=== PATIENT | male | born 1990 | race Caucasian/White ===

== ENCOUNTER 2022-04-20 12:40 | Emergency (ER) | payer OTHER ==
[~2022-04-20 12:40] MED LIST: IBUPROFEN600 MG PO; NORCO 5-325 TA1 EACH PO
[2022-04-20 13:20] LABS: HEMOGLOBIN 14.8 gm/dl (14.0-17.5); RED BLOOD COUNT 4.77 M/UL (4.20-5.50)
[2022-04-20 13:34] LABS: BUN/CREATININE RATIO 18 (0-10)
[2022-04-20] MEDS ORDERED: PRILOSEC OTC20 MG PO (16:36)
[2022-04-20] MEDS ORDERED: DULCOLAX5 MG PO (16:36)
[2022-04-20] MEDS ORDERED: COLACE 100MG C100 MG PO (16:36)
== END 2022-04-20 16:45 | disposition home or self-care (01) ==
LOC: ER1 12:40
PROVIDERS: Physician Assistant
DX: K59.00 Constipation, unspecified (principal); K21.9 Gastro-esophageal reflux disease without esophagitis; F17.200 Nicotine dependence, unspecified, uncomplicated
CPT/HCPCS: 80053; 80307; 81001; 83690; 85025; 96374; 99284; C9113; Q9967